=== PATIENT | male | born 2000 | race African-American/Black ===

== ENCOUNTER 2025-03-17 19:36 | Emergency (ER) | payer MEDICAID, OTHER ==
[~2025-03-17] VITALS: Ht 188 cm; Wt 138.5 kg
[2025-03-17] MEDS: IBUPROFEN 800 MG TAB PO ONE (20:24)
--- NOTE | 2025-03-17 20:27 | DVH ---
Exam: US ABDOMEN LIMITED Date: 03/17/2025 08:07 PM Clinical History: Periumbilical regions Comparison: None Technique: Targeted sonographic evaluation of the soft tissues of the umbilical area was obtained utilizing hernandez scale and color Doppler imaging. Findings: There is no evidence for drainable collection. There is no evidence for solid or cystic mass in the site. No vascular abnormalities identified at this site. There are no abnormal masses or fluid collections in the area of the umbilicus. Area of patient discomfort was also scanned and found no masses or fluid collections. IMPRESSION: 1. No definite sonographic abnormality is identified in the soft tissues of the region of the umbilic us and area of patient discomfort.
[2025-03-17 20:29] VITALS: BP 119/58; PULSE 76; RESP 16; TEMP 98.4; O2SAT 97
--- NOTE | 2025-03-17 20:51 | ED.PDOC ---
GI ASSESSMENT HPI Comments Patient is a morbidly obese 24-year-old male presenting to the ED with chief complaint of umbilicus bleeding. Patient reports that he had been cleaning his umbilical region earlier today when it had started to bleed. Patient relays that he was advised by an urgent care he visited to come into the ED for further evaluation. Patient denies any abdominal pain, N/V/D, dizziness, fever, or chills. No active bleed. Vital signs were stable on arrival. Chief Complaint: Abdominal Pain Time Seen by MD: 20:49 Reviewed Notes: Nurses Notes, Medications, Allergies Allergies: Coded Allergies: NO KNOWN ALLERGIES (Unverified , 03/17/25) Information Source: Patient Mode of Arrival: Ambulatory Timing: Hours Duration: Since onset Prehospital treatment: None Quality: None Vomitus: None Stool: Normal Severity: Mild Recent: None Recent Hx of: None Pain Location: Other (Umbilicus) Modifying Factors: Nothing Associated sign and symptoms: None Past Medical History PAST MEDICAL HISTORY: Denies Surgical History: Denies all surgeries Family History Family History: Reviewed,noncontributory to illness Social History Smoker: Non-Smoker Alcohol: Denies ETOH Use Drugs: Denies Drug Use Lives In: Home Constitutional: denies: chills, diaphoresis, fatigue, fever, malaise, sweats, weakness, others EENTM: denies: blurred vision, double vision, ear bleeding, ear discharge, ear drainage, ear pain, ear ringing, eye pain, eye redness, hearing loss, mouth pain, mouth swelling, nasal discharge, nose bleeding, nose congestion, nose pain, photophobia, tearing, throat pain, throat swelling, voice changes, others Respiratory: denies: cough, hemoptysis, orthopnea, SOB at rest, shortness of breath, SOB with excertion, stridor, wheezing, others Cardiovascular: denies: chest pain, dizzy spells, diaphoresis, Dyspnea on exertion, edema, irregular heart beat, left arm pain, lightheadedness, palpitations, PND, syncope, others Gastrointestinal: denies: abdomen distended, abdominal pain, blood streaked bowels, constipated, diarrhea, dysphagia, difficulty swallowing, hematemesis, melena, nausea, poor appetite, poor fluid intake, rectal bleeding, rectal pain, vomiting, others Genitourinary: denies: burning, dysuria, flank pain, frequency, hematuria, incontinence, penile discharge, penile sore, pain, testicle pain, testicle swelling, urgency, others Neurological: denies: dizziness, fainting, headache, left sided numbness, left sided weakness, numbness, paresthesia, pre-existing deficit, right sided numbness, right sided weakness, seizure, speech problems, tingling, tremors, weakness, others Musculoskeletal: denies: back pain, gout, joint pain, joint swelling, muscle pain, muscle stiffness, neck pain, others Integumetry: reports: others (Umbilicus bleeding); denies: bruises, change in color, change in hair/nails, dryness, laceration, lesions, lumps, rash, wounds Allergic/Immunocompromised: denies: Difficulty Healing, Frequent Infections, Hives, Itching, others Hematologic/Lymphatic: denies: anemia, blood clots, easy bleeding, easy bruising, swollen glands, others Endocrine: denies: excessive hunger, excessive sweating, excessive thirst, excessive urination, flushing, intolerance to cold, intolerance to heat, unexplained weight gain, unexplained weight loss, others Psychiatric: denies: anxiety, bipolar disorder, depression, hopeless, panic disorder, schizophrenia, sleepless, suicidal, others All Other Systems: Reviewed and Negative Physical Exam General Appearance: No Apparent Distress, Normal HEENT: Normal ENT Inspection, Pharynx Normal, TMs Normal Neck: Full Range of Motion, Non-Tender, Normal, Normal Inspection Respiratory: Chest Non-Tender, Lungs Clear, No Accessory Muscle Use, No Respiratory Distress, Normal Breath Sounds Cardiovascular: No Edema, No JVD, No Murmur, No Gallop, Normal Peripheral Pulses, Regular Rate/Rhythm Breast Exam: Deferred Gastrointestinal: Other (Unremarkable abdominal evaluation. No signs of trauma the umbilicus. No protrusions or reducible masses. Patient does complain of tenderness to palpation throughout.) Genitalia: Deferred Pelvic: Deferred Rectal: Deferred Extremities: No calf tenderness, Normal capillary refill, Normal inspection, Normal range of motion, Non-tender, No pedal edema Neurologic: Alert Cerebellar Function: NOT DONE Reflexes: NOT DONE Skin: Dry, Normal Color, Warm Lymphatic: No Adenopathy Was a procedure done? Was a procedure done?: No GI differential Dx Differential Diagnosis: Other (Umbilical hernia, soft tissue injury) X-Ray, Labs, Meds, VS Vital Signs Date Time Temp Pulse Resp B/P (MAP) Pulse Ox O2 Delivery O2 Flow Rate FiO2 03/17/25 20:29 98.4 76 16 119/58 (78) 97 98.4 03/17/25 20:29 76 97 Room Air 03/17/25 20:24 97.9 03/17/25 19:37 98.8 83 18 151/105 99 98.8 Current Medications Medications (Trade) Dose Ordered Sig/William Route Start Time Stop Time Status Last Admin Ibuprofen (Motrin Tablet) 800 mg ONCE ONCE PO 03/17/25 20:00 03/17/25 20:01 DC 03/17/25 20:24 [place] [id number] Ph: [phone] DIAGNOSTIC IMAGING Diagnostic Imaging Report : [id number] Signed PATIENT: VALERIE FLORES ACCT: [id number] UNIT: [id number] : 2000 LOC: ER ROOM / BED: / AGE / SEX: 24 / M ADM STATUS: REG ER SERVICE 55 ORDERING PHYSICIAN: JASMYNE FLAHERTY PAC PROCEDURE(s): ABDL - ABDOMEN LIMITED REASON: Periumbilical regions ORDER NUMBER(s): [id number], ACCESSION NUMBER(s): [id number] Exam: US ABDOMEN LIMITED Date: 03/17/2025 08:07 PM Clinical History: Periumbilical regions Comparison: None Technique: Targeted sonographic evaluation of the soft tissues of the umbilical area was obtained utilizing grayscale and color Doppler imaging. Findings: There is no evidence for drainable collection. There is no evidence for solid or cystic mass in the site. No vascular abnormalities identified at this site. There are no abnormal masses or fluid collections in the area of the umbilicus. Area of patient discomfort was also scanned and found no masses or fluid collections. IMPRESSION: 1. No definite sonographic abnormality is identified in the soft tissues of the region of the umbilicus and area of patient discomfort. ATED BY: KATARZYNA SHOOK Jr., DO DICTATED DATE/TIME: 03/17/252023 SIGNED BY: KATARZYNA SHOOK Jr., SIGNED DATE/TIME: 03/17/252023 CC: X-Ray, Labs, Meds, VS Comment All studies performed the ED were evaluated by me personally. Ultrasound of the umbilicus was unremarkable for any abscess formation or hernia concerns. Advised patient to abstain from any additional cleaning of the umbilicus for the next few months. Advised follow up with the primary care provider the patient has any further complaints of his umbilicus region. Time of 1ST Reevaluation: : Reevaluation 1ST: Improved Consultation: PCP Patient Education/Counseling: Diagnosis, Treatment Family Education/Counseling: Diagnosis, Treatment, No Family Present SEPSIS Sepsis Screen Date sepsis recognized/suspect: Mar 17, 2025 Time Sepsis recognized/suspect: 1926 Recent Procedure: No On Antibiotic Therapy: No Respiratory Rate >20: No Heart Rate >90: No Temp<36 C (96.8 F) or >38.3 C: No SBP <90 or MAP <65 mmHG: No New Acute Mental Status Change: No Is the patient on CPAP, BIPAP,: No Physician Orders Abdomen Limited (03/17/25 19:56) Vital Signs Date Time Temp Pulse Resp B/P (MAP) Pulse Ox O2 Delivery O2 Flow Rate FiO2 03/17/25 20:29 98.4 76 16 119/58 (78) 97 98.4 03/17/25 20:29 76 97 Room Air 03/17/25 20:24 97.9 03/17/25 19:37 98.8 83 18 151/105 99 98.8 Medications Medications Dose Ordered Sig/William Route Start Time Stop Time Status Last Admin Dose Admin Ibuprofen 800 mg ONCE ONCE PO 03/17/25 20:00 03/17/25 20:01 DC 03/17/25 20:24 Departure 1 Departure Time of Disposition: 21:29 Impression: Primary Impression: Umbilicus discharge Disposition: HOME / SELF CARE / HOMELESS Condition: Stable Additional Instructions: Advised patient cease cleaning his umbilicus for the next few months. If symptoms continue, patient will need to follow up with the primary care provider for management. Discharged With: Self, Friend Critical Care Note Critical Care Time?: No Stability Stability form required: No Heart Score Heart Score: Heart Score Response (Comments) Value History N/A 0 EKG N/A 0 Age N/A 0 Risk Factors N/A 0 Troponin N/A 0 Total 0 I personally scribed for JASMYNE FLAHERTY PAC ([email or web address]) on 03/17/25 at 20:51. Electronically submitted by Herman Roy ([email or web address]). JASMYNE FLAHERTY PAC Mar 17, 2025 20:51
== END 2025-03-17 22:20 | disposition home or self-care (01) ==
LOC: ER 19:45
DX: R19.8 Other specified symptoms and signs involving the digestive system and abdomen (principal); E66.01 Morbid (severe) obesity due to excess calories; Z68.39 Body mass index [BMI] 39.0-39.9, adult
CPT/HCPCS: 76705